=== PATIENT | female | born 1965 ===

== ENCOUNTER 2017-04-10 14:51 | Inpatient (IN) | payer BC, OTHER ==
[~2017-04-10] VITALS: Ht 165.1 cm; Wt 72.6 kg
[~2017-04-10 14:51] MED LIST: CLON0.1T14 PO; DICY20TA28 PO; Fluoxetine Hcl PO; Gabapentin PO; HYDR-3895 PO; Trazodone Hcl PO
[2017-04-10] MEDS ORDERED: LORAZEPAM 1 MG TABLET PO PRN (16:30)
[2017-04-10] MEDS ORDERED: ONDANSETRON 4 MG/2 ML VIAL IM PRN (16:30)
[2017-04-10] MEDS ORDERED: MAG HYDROX/AL HYDROX/SIMETH 30 ML LIQUID UDC PO PRN (16:30)
[2017-04-10] MEDS ORDERED: ONDANSETRON ODT 4 MG TAB.RAPDIS SL PRN (16:30)
[2017-04-10] MEDS ORDERED: NICOTINE 14 MG/24HR PATCH TD PRN (16:30)
[2017-04-10] MEDS ORDERED: NICOTINE POLACRILEX 4 MG GUM-PK OF TEN BC PRN (16:30)
[2017-04-10] MEDS ORDERED: LORAZEPAM 2 MG/1 ML VIAL IM PRN (16:30)
[2017-04-10] MEDS ORDERED: MIRALAX 17 GM POWD.PACK PO PRN (16:30)
[2017-04-10] MEDS ORDERED: MAGNESIUM HYDROXIDE 30 ML LIQUID UDC PO PRN (16:30)
[2017-04-10] MEDS ORDERED: LOPERAMIDE HCL 2 MG CAPSULE PO PRN ×2 (16:30)
--- NOTE | 2017-04-10 16:30 | NUR ---
INTAKE ASSESSMENT Received patient in intake. She is AOX4, stable, and ambulatory. Vital signs WNL. Denies any pain or discomfort. Patient reports NKA. Patient brought home medications with her. Explained unit protocols and patient verbalized understanding. Will admit patient upon admission to third floor.
--- NOTE | 2017-04-10 16:50 | NUR ---
ADMISSION NOTE Allergy- NKA/NKFA Status-Full code Height 5'5 Weight-160 lb PCP-NONE Vital Signs- B/P-122/69,HR-102, R-17, TEMP-98.6, SPO2-98%, Pain 0/10 CIWA-4 Patient is a 51 year old female admitted to [facility] to detox center for ETOH dependence under the care of Dr. Hernandez. Urine provided by patient for urine screen and thorough body and belonging check done by DIRECTOR OF CLOUD SERVICES. Patient appears anxious. Patient is cooperative during nursing assessment. Upon admission Patient is noted to be flat, intoxicated, but cooperative with admission. Patient denies chest pain or SOB. Lung sounds clear with no cough noted. Bowel sounds present in all 4 quadrants. BUE and BLE noted WNL with no edema present. Skin check done with no significant findings. Pt reported PMH of Anxiety, Depression, insomnia, Pt refused PNA vaccine. Patient brought in home medications. Patient denies SI/HI ideations. Pt AOx4. Patient reported first time in treatment. Patient reports of 5 years of sobriety from 2010 to 2014. Pt reported s/s of withdrawal as N/V, anxiety, Shakes, Restless.Patient reported treatment history as in [facility] in august 2016. Pt reported Substance abuse history as: WHITE WINE-Pt reported drinking since February 2017 daily 2 bottles last used was 04/10/17, 2 bottles Po at 1200. VODKA-Pt reported drinking since February 2017 daily 1/2 bottle last used was 04/10/17, 2 bottles Po at 1400. Educated patient regarding unit policies and protocols, patient verbalized understanding. Patient oriented to unit by DIRECTOR OF CLOUD SERVICES. Fall and seizure precautions in place. Safety measures in place, Call light within reach. Will cont to monitor.
[2017-04-10] MEDS ORDERED: THIAMINE HCL 200 MG/2 ML VIAL IM ONE (17:00)
[2017-04-10 17:17] LABS: *URINE HCG, QUAL NEGATIVE (NEGATIVE)
[2017-04-10] MEDS ORDERED: TRIA10.8 NS (17:23)
[2017-04-10] MEDS ORDERED: [UNRECOGNIZED DRUG - CODE] PO (17:23)
[2017-04-10 17:24] LABS: *AMPHETAMINE, URINE NEGATIVE (NEGATIVE); *BARBITURATE, URINE NEGATIVE (NEGATIVE); *CANNABINOID, URINE NEGATIVE (NEGATIVE); *COCCAINE, URINE NEGATIVE (NEGATIVE); *OPIATE, URINE NEGATIVE (NEGATIVE); *PHENCYCLIDINE SCREEN,URINE NEGATIVE (NEGATIVE)
[2017-04-10] MEDS ORDERED: LORATIDINE 10 MG PO PRN (18:00)
--- NOTE | 2017-04-10 19:14 | NUR ---
END OF SHIFT NOTE Patient is alert oriented x4. 51 year old female admitted for ETOH dependence. Patient has PMH of anxiety,depression, Insomnia. Patient was given scheduled Thiamine tolerated well no s/s of swelling no bleeding noted. Skin intact warm and dry to touch. Last CIWA score was 4. All safety measures in place, Call light within reach. Patient endorsed to night nurse in stable condition.
[2017-04-10 20:00] VITALS: BP 115/62
--- NOTE | 2017-04-10 20:00 | NUR ---
START OF SHIFT NOTE RECEIVED REPORT FROM DAY SHIFT NURSE. PATIENT IS A 51 YEAR OLD FEMALE NEWLY ADMITTED FOR ETOH DEPENDENCE. PATIENT REPORTS PMH OF ANXIETY, DEPRESSION AND INSOMNIA . UPON ADMISSION, PATIENT REPORTS DRINKING 2 BOTTLES OF WINE AND VODKA BOTTLE DAILY SINCE 17 YEARS OLD. PATIENT WAS PLACED ON ATIVAN TAPER TO START TOMORROW. SKIN INTACT. THIAMINE IM GIVEN. LAST CIWA 4. RECEIVED PATIENT ALERT AND ORIENTED X 4. RESPIRATION EVEN AND UNLABORED. PATIENT REPORTS ANXIETY, NOTED WITH TREMORS, NO N/V, RESTLESS , SWEATING AND FIDGETY. RELAXATION TECHNIQUE PROVIDED. ON FALL/SEIZURE PRECAUTION. SAFETY MEASURES IN PLACE. CALL LIGHT IN REACH. WILL CONTINUE TO MONITOR.
[2017-04-10] MEDS: LORAZEPAM 1 MG TABLET PO PRN (20:21)
--- NOTE | 2017-04-10 20:21 | NUR ---
PRN ATIVAN ADMINISTRATION PATIENT C/O ANXIETY, NOTED RESTLESS, TREMORS AND SWEATING. CIWA 11. ATIVAN GIVEN. WILL MONITOR FOR EFFECTIVENESS
[2017-04-10 21:14] LABS: BASOPHILS # (AUTO) 0.1 K/uL (0.0-8.0); EOSINOPHILS % (AUTO) 0.1 % (0.0-7.0); HEMATOCRIT 40.4 % (37-47); HEMOGLOBIN 13.3 G/DL (12.0-16.0); LYMPHOCYTES # (AUTO) 2.1 K/UL (0.8-4.8); LYMPHOCYTES % (AUTO) 25.6 % (20.5-51.5); MEAN CORPUSCULAR HGB CONC 33 g/dL (32.0-37.0); MEAN CORPUSCULAR VOLUME 96.7 FL (81.0-99.0); MONOCYTES # (AUTO) 0.8 K/UL (0.1-1.30); MONOCYTES % (AUTO) 9.9 % (0.0-11.0); NEUTROPHILS # (AUTO) 5.1 K/UL (1.8-8.9); NEUTROPHILS % (AUTO) 63.4 % (38.5-71.5); PLATELET COUNT (AUTO) 188 K/UL (150-450); RED BLOOD CELL COUNT(AUTO) 4.18 MIL/UL (4.2-5.4); WHITE BLOOD COUNT (AUTO) 8.1 K/UL (4.0-11.2)
--- NOTE | 2017-04-10 21:21 | NUR ---
PRN ATIVAN RE-ASSESSMENT PATIENT STATES SHE FEELS MUCH BETTER, LESS ANXIOUS, ATIVAN HELPFUL. CIWA IS NOW 5 FROM 11 . WILL CONTINUE TO MONITOR
[2017-04-10 21:37] LABS: BILIRUBIN,TOTAL 0.3 mg/dL (0.2-1.0); CREATININE 0.8 mg/dL (0.6-1.3); MAGNESIUM 2.1 mg/dL (1.8-2.4); POTASSIUM 3.8 mmol/L (3.5-5.1); TOTAL PROTEIN, SERUM 6.8 g/dL (6.4-8.2)
[2017-04-11] VITALS (7 sets, daily range): BP systolic 106–157; BP diastolic 63–89
[2017-04-11] MEDS: diphenhydrAMINE 50 MG CAPSULE PO PRN (00:08)
[2017-04-11] MEDS: IBUPROFEN 400 MG TABLET PO PRN (00:08)
--- NOTE | 2017-04-11 00:08 | NUR ---
PRN MOTRIN, BENADRYL AND CATAPRES ADMINISTRATION PATIENT C/O OF BOTH LOWER EXTREMITIES PAIN, UNABLE TO SLEEP, ANXIOUS, TREMORS AND BP-142/78. PRN MOTRIN, CATAPRES AND BENADRYL GIVEN. WILL MONITOR FOR EFFECTIVENESS
[2017-04-11] MEDS: CLONIDINE HCL 0.1 MG TABLET PO PRN ×2 (00:09→20:27)
--- NOTE | 2017-04-11 01:08 | NUR ---
THUY CORNELIUS AND CATAPRES RE-ASSESSMENT PATIENT IN BED WITH EYES CLOSED. NO FACIAL GRIMACING. RESPIRATION EVEN AND UNLABORED. SAFETY MEASURES IN PLACE. CALL LIGHT IN REACH. WILL CONTINUE TO MONITOR.
[2017-04-11] MEDS: LORAZEPAM 1 MG TABLET PO PRN (04:12)
--- NOTE | 2017-04-11 04:12 | NUR ---
PRN ATIVAN ADMINISTRATION PATIENT C/O ANXIETY, TREMULOUS AND RESTLESS. CIWA 8. PRN ATIVAN GIVEN. WILL MONITOR FOR EFFECTIVENESS
--- NOTE | 2017-04-11 05:12 | NUR ---
PRN ATIVAN RE-ASSESSMENT PATIENT SLEEPING COMFORTABLY. NO S/S OF DISTRESS. NO FACIAL GRIMACING. RESPIRATION EVEN AND UNLABORED. SAFETY MEASURES IN PLACE. CALL LIGHT IN REACH. WILL CONTINUE TO MONITOR.
--- NOTE | 2017-04-11 07:10 | NUR ---
END OF SHIFT NOTE PATIENT IS A 51 YEAR OLD FEMALE ADMITTED FOR ETOH DEPENDENCE. PATIENT REPORTS PMH OF ANXIETY, DEPRESSION AND INSOMNIA . UPON ADMISSION, PATIENT REPORTS DRINKING 2 BOTTLES OF WINE AND VODKA BOTTLE DAILY SINCE 17 YEARS OLD. PATIENT WAS PLACED ON ATIVAN TAPER TO START TODAY. SKIN INTACT. PATIENT WAS ANXIOUS, TREMULOUS AND RESTLESS DURING SHIFT. PATIENT WAS GIVEN PRN ATIVAN X 2 . BENADRYL WAS GIVEN FOR SLEEP AND CATAPRES . RELAXATION PROVIDED. ON FALL/SEIZURE PRECAUTION. SAFETY MEASURES IN PLACE. CALL LIGHT IN REACH. WILL CONTINUE TO MONITOR. SLEPT 8 HOURS. FLUID INTAKE 646 ML. VOIDED X 2. NO BM. LAST CIWA 8 .
--- NOTE | 2017-04-11 07:51 | NUR ---
START OF SHIFT NOTE Received report from night nurse, 51 year old female admitted for ETOH dependence. Patient has PMH of anxiety,depression, Insomnia. Per endorsement pt received PRN Ativan, Clonidine, Benadryl, Motrin effective per night nurse, pt slept for 8 hours, last CIWA was 8. Patient received awake, alert and oriented x4, Educated patient regarding plan of care for the day and medication regimen with good verbal understanding. Safety measures in place. call light with in reach, will continue to monitor.
[2017-04-11] MEDS ORDERED: TUBERCULIN,PURIF.PROT.DERIV. 5 TU/0.1 ML TEST ID ONE (09:00)
[2017-04-11] MEDS: MULTIVITAMINS,THERAPEUTIC TABLET PO SCH (09:08)
[2017-04-11] MEDS: FOLIC ACID 1 MG TABLET PO SCH (09:08)
[2017-04-11] MEDS: LORAZEPAM 1 MG TABLET PO SCH ×4 (09:08→20:27)
[2017-04-11] MEDS: THIAMINE HCL 100 MG TABLET PO SCH (09:08)
[2017-04-11] MEDS: BENZOCAINE/MENTH/CETYLPYRD LOZENGE MM PRN ×2 (16:07→20:30)
--- NOTE | 2017-04-11 16:07 | NUR ---
PRN CEPACOL Patient was c/o of sore throat, PRN Cepacol given as ordered. Will cont to monitor and reassess.
--- NOTE | 2017-04-11 17:07 | NUR ---
CEPACOL REASSESSMENT Per pt Cepacol was effective "My throat is feeling better".
--- NOTE | 2017-04-11 19:07 | NUR ---
END OF SHIFT NOTE Patient is alert oriented x4. 51 year old female admitted for ETOH dependence. Patient has PMH of anxiety,depression, Insomnia. Patient started on 5 days Ativan taper tolerating well. Medications were effective in reducing withdrawal symptoms. Skin intact warm and dry to touch. Last CIWA score was 7. Patient remained compliant with treatment plan and medication regime. All safety measures in place, Call light within reach. Patient endorsed to night nurse in stable condition.
--- NOTE | 2017-04-11 20:00 | NUR ---
Start of Shift Pt is a 51 year old female admitted for ETOH dependence, placed on 5 day Ativan taper. Pt reported consuming Wine 2 bottles/daily and Vodka 0.5 bottle/daily. PMH: anxiety, depression and insomnia. NKA, regular diet, fall/seizure precautions and full code. Upon assessment, pt presents with anxiety, reports feeling hot/cold with chills, skin is flushed noted with moderate sweat, denies SOB/chest pain, respirations even/unlabored, denies n/v/d, medications due, safety measures in place, call light within reach, side rails up x2, bed locked and in low position. Will continue to monitor.
--- NOTE | 2017-04-11 20:30 | NUR ---
PRN Administration Pt reports feeling anxious, skin flushed/clammy, reports feeling restless. BP 157/89, pulse 117 Clonidine 0.1mg PRN administered. Cepacol 1loz PRN administered for sore throat. Safety measures in place, will continue to monitor.
--- NOTE | 2017-04-11 21:30 | NUR ---
PRN Reassessment BP 119/71, pulse 106. Pt reports she is "feeling better". Pt denies sore throat. Medications effective. Safety measures in place. Will continue to monitor.
[2017-04-12] VITALS: BP 124/74
[2017-04-12 04:00] VITALS: BP 118/57
--- NOTE | 2017-04-12 04:00 | NUR ---
Vital Signs/CIWA deferred BP 118/57, pulse 97, resp 16, SpO2 100% room air, temp 98.1, no pain 0/10 CIWA deferred due to pt sleeping, to assess while pt is awake as ordered. Safety measures in place, will continue to monitor.
[2017-04-12] MEDS: CLONIDINE HCL 0.1 MG TABLET PO PRN ×2 (06:30→18:02)
--- NOTE | 2017-04-12 06:30 | NUR ---
PRN Clonidine Pt reports feeling anxious, she states, "I feel as though I am about to faint" BP 135/87, pulse 130 Clonidine 0.1mg PRN administered Safety measures in place, will continue to monitor.
[2017-04-12 07:06] LABS: HEPATITIS B SURFACE AG Negative (Negative)
--- NOTE | 2017-04-12 07:06 | NUR ---
PRN Clonidine Reassessment BP 126/77, pulse 91 Pt reports she no longer feels like fainting. Pt is in bed resting, needs met safety measures in place, will continue to monitor.
--- NOTE | 2017-04-12 07:07 | NUR ---
End of Shift Pt is a 51 year old female admitted for ETOH dependence, placed on 5 day Ativan taper. Pt reported consuming Wine 2 bottles/daily and Vodka 0.5 bottle/daily. PMH: anxiety, depression and insomnia. NKA, regular diet, fall/seizure precautions and full code. During shift, pt presented with anxiety, reported feeling hot/cold with chills, skin flushed noted with moderate sweat scheduled taper medications administered, CIWA &. Clonidine 0.1mg x2 PRN administered for reports of anxiety and restlessness, effective. Cepacol 1loz PRN administered for sore throat. Pt slept for 7 hours, intake of 1455 ml PO, voids x3 and stool x0. Safety measures in place, call light within reach, side rails up x2, bed locked and in low position. Endorsed to day shift nurse.
--- NOTE | 2017-04-12 07:44 | NUR ---
Start of shift note; Received report from night nurse. Patient is a 51 year old female admitted on 04/10/17 for ETOH dependence. Patient was placed on 5 day Ativan taper, no adverse reaction noted. Patient reported history of anxiety, depression and insomnia. NKA, on regular diet and on full code status. Patient's last CIWA was 7 at 0400. Patient slept for 7 hours. Patient is on fall and seizure precaution. Bed in lowest position , call light within reach. Will continue to monitor patient.
[2017-04-12 08:00] VITALS: BP 127/82
[2017-04-12] MEDS: LORAZEPAM 1 MG TABLET PO SCH ×3 (08:57→16:33)
[2017-04-12] MEDS: MULTIVITAMINS,THERAPEUTIC TABLET PO SCH (08:57)
[2017-04-12] MEDS: THIAMINE HCL 100 MG TABLET PO SCH (08:57)
[2017-04-12] MEDS: FOLIC ACID 1 MG TABLET PO SCH (08:57)
[2017-04-12] MEDS ORDERED: INFLUENZA VACCINE 2017-2018 0.5 ML DISP.SYRIN IM ONE (09:00)
[2017-04-12] MEDS ORDERED: VENLAFAXINE XR 75 MG CAP.SR.24H PO SCH (09:00)
--- NOTE | 2017-04-12 09:07 | NUR ---
Vaccine refusal; Patient refused to receive Flu shot, patient stated "i don't feel well, i will get some other time". Educated patient regarding the importance of Flu shot, patient verbalized understanding.
--- NOTE | 2017-04-12 10:00 | NUR ---
Activity Group Note: Client participated in "painting" activity. Intervention goal was to increase task focus, and leisure skills. Client appeared hesitant at beginning of activity, but was willing to participate once supplies were assembled. She appeared to have calm affect with congruent mood. Client was able to focus on task and initiate conversation with social worker clinical. She was able to complete activity and stated that it was "relaxing" and "brought her back to life." Client benefits from leisure activities. Will continue to encourage participation.
--- NOTE | 2017-04-12 10:11 | NUR ---
ENDORSEMENT Pt endorsed to me. Pt received in group activity. No distress noted.
--- NOTE | 2017-04-12 10:11 | NUR ---
Endorsement given; Patient is AOX4. Detailed report given to covering nurse. Met all needs.
[2017-04-12] MEDS: BENZOCAINE/MENTH/CETYLPYRD LOZENGE MM PRN ×3 (11:30→20:53)
--- NOTE | 2017-04-12 11:34 | NUR ---
PRN Pt with c/o sore throat. Cepacol prn per MD order given and tolerated well.
[2017-04-12 12:31] VITALS: BP 128/80
--- NOTE | 2017-04-12 12:34 | NUR ---
PRN EVAL Pt states sore throat has improved, but not completely gone.
--- NOTE | 2017-04-12 13:45 | NUR ---
Activity Group Note: Attempt made for group participation. Client refused. Will attempt again when time permits.
[2017-04-12 16:00] VITALS: BP 125/84
--- NOTE | 2017-04-12 16:34 | NUR ---
PRN pt with c/o sore throat. cepacol prn per MD order given and tolerated well.
--- NOTE | 2017-04-12 17:34 | NUR ---
PRN EVAL Pt states still has slightly sore throat.
[2017-04-12] MEDS: IBUPROFEN 400 MG TABLET PO PRN (18:02)
--- NOTE | 2017-04-12 18:03 | NUR ---
PRN Pt states has bilateral leg pain 5/10. motrin po prn per MD order given and tolerated well.
--- NOTE | 2017-04-12 18:05 | NUR ---
PRN Pt with xg=892/64. Catapres po prn per MD order given and tolerated well.
--- NOTE | 2017-04-12 18:26 | NUR ---
END OF SHIFT Pt 51 y/o female admitted for etoh dependence. Pt alert and oriented to name, place, and time. Perrla. Skin warm and slightly moist to touch. Respirations even and unlabored. Pt mostly isolative to room today. Pt did attend group activity. Pt was seen by MD today. Pt medication compliant and tolerated well. No ASE noted. Bed on lowest position with siderails x2 up for safety. Call light within reach. No distress noted at this time.
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
[2017-04-12 20:00] VITALS: BP 139/88
[2017-04-12] MEDS: CLONIDINE HCL 0.1 MG TABLET PO SCH (20:42)
[2017-04-12] MEDS ORDERED: LORAZEPAM 1 MG TABLET PO SCH (21:00)
[2017-04-12] MEDS: diphenhydrAMINE 50 MG CAPSULE PO PRN (21:42)
--- NOTE | 2017-04-12 21:42 | NUR ---
PRN CEPACOL AND BENADRYL ADMINISTRATION Pt is coughing and requests PRN Cepacol cough drops, administered at 2052. Pt also requests PRN Benadryl for sleep aid. Safety measures in place. Call light within reach. Will continue to monitor.
--- NOTE | 2017-04-12 22:42 | NUR ---
PRN CEPACOL AND BENADRYL REASSESSMENT Pt is laying in bed with eyes closed. Respirations 16, even and unlabored. Safety measures in place. Call light within reach. Will continue to monitor.
--- NOTE | 2017-04-13 | NUR ---
PT REFUSED VITALS AND CIWA DEFERRED Pt is laying in bed with eyes closed. Pt refused vitals. CIWA deferred, to be assessed when pt is fully awake per orders. Respirations 16, even and unlabored. Safety measures in place. Call light within reach. Will continue to monitor.
[2017-04-13] MEDS: CLONIDINE HCL 0.1 MG TABLET PO PRN (01:34)
--- NOTE | 2017-04-13 01:34 | NUR ---
PRN CLONIDINE ADMINISTRATION Pt reports waking up and now feeling restless and anxious. BP 130/77. Safety measures in place. Call light within reach. Will continue to monitor.
[2017-04-13 01:35] VITALS: BP 130/77
--- NOTE | 2017-04-13 02:34 | NUR ---
PRN CLONIDINE REASSESSMENT Pt is laying in bed with eyes closed. Respirations 16, even and unlabored. Safety measures in place. Call light within reach. Will continue to monitor.
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
[2017-04-13 08:45] VITALS: BP 133/73
[2017-04-13] MEDS: THIAMINE HCL 100 MG TABLET PO SCH (08:54)
[2017-04-13] MEDS: FOLIC ACID 1 MG TABLET PO SCH (08:54)
[2017-04-13] MEDS: LORAZEPAM 1 MG TABLET PO SCH ×3 (08:54→21:14)
[2017-04-13] MEDS: IBUPROFEN 400 MG TABLET PO PRN ×2 (08:54→21:14)
[2017-04-13] MEDS: CLONIDINE HCL 0.1 MG TABLET PO SCH ×2 (08:54→21:15)
[2017-04-13] MEDS: MULTIVITAMINS,THERAPEUTIC TABLET PO SCH (08:54)
[2017-04-13] MEDS ORDERED: VENLAFAXINE XR 75 MG CAP.SR.24H PO SCH (09:00)
[2017-04-13] MEDS: VENLAFAXINE XR 37.5 MG CAP.SR.24H PO SCH (09:27)
[2017-04-13] MEDS: BENZOCAINE/MENTH/CETYLPYRD LOZENGE MM PRN ×3 (09:28→21:14)
--- NOTE | 2017-04-13 09:28 | NUR ---
PRN Motrin 400mg PO for pain 6/10 on left lower extremity, PRN Cepacol Lozenge MM for sore throat. Will continue to monitor.
--- NOTE | 2017-04-13 10:28 | NUR ---
Reassessment PRN Motrin 400mg client reports relief from pain 0/10 on left lower extremity, PRN Cepacol Lozenge MM for sore throat effective. Will continue to monitor.
[2017-04-13 12:57] VITALS: BP 106/69
--- NOTE | 2017-04-13 15:11 | NUR ---
PRN Cepacol Lozenge MM for sore throat. Will continue to monitor.
--- NOTE | 2017-04-13 16:11 | NUR ---
Reassessment PRN Cepacol Lozenge MM for sore throat effective.
[2017-04-13 16:44] VITALS: BP 131/75
--- NOTE | 2017-04-13 19:30 | NUR ---
END OF SHIFT Client is a 51 y/o female, admitted to [facility] for withdrawal from alcohol. Client is on 5 day Ativan taper (day 3), tolerating well. Last CIWA 7 @ 1600. PRN Cepacol Lozenge MM x 2 for sore throat, Motrin 400mg PO for pain, noted effective. Adequate PO fluid intake 2555mL, void x 5, stool x 2. Client is compliant with 2/3 of group therapy. She denies any hx of withdrawal-induced seizures, she is on seizure precautions. She reports of NKA, he is full code, Regular diet. Side rails x 2 up/padded. Call light within reach.
[2017-04-13 20:00] VITALS: BP 130/71
[2017-04-13] MEDS: diphenhydrAMINE 50 MG CAPSULE PO PRN (22:45)
[2017-04-14] VITALS: BP 140/74
[2017-04-14] MEDS: BENZOCAINE/MENTH/CETYLPYRD LOZENGE MM PRN (00:37)
[2017-04-14] MEDS: CLONIDINE HCL 0.1 MG TABLET PO PRN (00:37)
--- NOTE | 2017-04-14 07:30 | NUR ---
START OF SHIFT Pt 51 y/o female admitted for etoh dependence. Pt received in room on bed with eyes closed resting, but easily arousable to name. Pt alert and oriented to name, place, and time. Perrla. Skin warm and slightly moist to touch. Respirations even and unlabored. Bilateral hand tremors noted. It was reported that pt slept for 8 hour last night. Bed on lowest position with side rails x2 up for safety. Call light within reach. No distress noted at this time.
[2017-04-14 08:00] VITALS: BP 101/53
[2017-04-14 08:15] VITALS: BP 110/69
--- NOTE | 2017-04-14 08:35 | NUR ---
PRN Pt states has sore throat. Cepacol prn per MD order given and tolerated well.
--- NOTE | 2017-04-14 08:35 | NUR ---
PRN Pt states has left leg pain and left shoulder pain 5/10. Ibuprofen po prn per MD order given and tolerated well.
[2017-04-14] MEDS: LORAZEPAM 1 MG TABLET PO SCH ×2 (09:00→21:12)
[2017-04-14] MEDS: MULTIVITAMINS,THERAPEUTIC TABLET PO SCH (09:00)
[2017-04-14] MEDS: CLONIDINE HCL 0.1 MG TABLET PO SCH ×2 (09:00→21:13)
[2017-04-14] MEDS: THIAMINE HCL 100 MG TABLET PO SCH (09:00)
[2017-04-14] MEDS: VENLAFAXINE XR 37.5 MG CAP.SR.24H PO SCH (09:00)
[2017-04-14] MEDS: FOLIC ACID 1 MG TABLET PO SCH (09:00)
--- NOTE | 2017-04-14 09:00 | NUR ---
0900 MEDICATION ADMINISTRATION All 0900 medications scheduled were administrated per MD order, per [facility] down time.
--- NOTE | 2017-04-14 09:35 | NUR ---
PRN LOVE Pt states pain 2/10 at this time.
--- NOTE | 2017-04-14 09:35 | NUR ---
PRN EVAL Pt states sore throat has subsided.
[2017-04-14] MEDS ORDERED: HYDROXYZINE PAMOATE 25 MG CAPSULE PO PRN (11:15)
[2017-04-14 12:59] VITALS: BP 101/51
--- NOTE | 2017-04-14 13:07 | NUR ---
Therapist prompted client to attend group today. Client agreed to attend.
[2017-04-14 16:00] VITALS: BP 113/60
--- NOTE | 2017-04-14 18:24 | NUR ---
START OF SHIFT NOTE: Patient is a 51 year old female admitted to [facility] for Alcohol dependency, continue 5 Day Ativan Taper. Patient tolerated well without ASE. Patient remains compliant with treatment plan, medications, and diet regime. Patient reports NKA, Regular Diet. Patient is on Full Code, Fall and Seizures Precautions. Patient denies Seizures History. PMH: Anxiety, Depression, Insomnia, Alcohol abuse History. Patient reports Alcohol PO: "Wine 2 bottles since 2000 every day. Last used "2 bottles on 04/10/2017". "Vodka 1/2 bottle (375 ml) every day". Last used "1/2 bottle (375 ml) on 04/10/2017". Patient reports recent History of Hospitalization/Treatment in [facility] on August,. VSWNL. CIWA 5. Respirations is unlabored and even. Patient denies SOB and chest pain. Lungs Sounds are clear. Patient reports has cough last 2 week. Abdomen is soft, non-tender. Bowel Sounds active in all four quadrants. Skin is intact, warm, and dry to touch. Encouraged to fluids intake as tolerated. Encouraged to attend groups activities. All needs met. Safety measures in place: Call light within reach, bed in low position, and locked, padded rails up bilaterally. Patient endorsed by outgoing day shift nurse. Report received. Will continue to monitor closely.
--- NOTE | 2017-04-14 18:24 | NUR ---
END OF SHIFT Pt 51 y/o female admitted for etoh dependence. Pt alert and oriented to name, place, and time. Perrla. Skin warm and dry to touch. Respirations even and unlabored. Bilateral hand tremors noted slightly. Pt attended group activity today. Pt was seen by MD today. Pt medication compliant and tolerated well. No ASE noted. Bed on lowest position with side rails x2 up for safety. Call light within reach. No distress noted at this time.
[2017-04-14 20:00] VITALS: BP 118/68
[2017-04-14] MEDS: NASOCORT NS PRN (21:11)
[2017-04-14] MEDS: QUETIAPINE FUMARATE 25 MG TABLET PO PRN (21:12)
--- NOTE | 2017-04-14 21:12 | NUR ---
PRN SEROQUEL 50 MG 2 TABS PO ADMINISTRATION Patient c/o insomnia. PRN Seroquel 50 mg 2 tabs PO administrated with full glass of water as ordered. Patient tolerated well. All needs met. Safety measures on place. Call light within reach, bed in lowest position and locked, padded rails up bilaterally rails up bilaterally. Will continue to monitor closely.
--- NOTE | 2017-04-14 22:12 | NUR ---
RE-ASSESSMENT Patient is sleeping. Respirations even and unlabored. RR:14. PRN Seroquel 50 mg 2 tabs PO administrated for insomnia @2111 was effective. All needs met. Safety measures on place. Call light within reach, bed in lowest position and locked, padded rails up bilaterally rails up bilaterally. Will continue to monitor closely.
--- NOTE | 2017-04-15 | NUR ---
VS REFUSED AND COWS/CIWA DEFERRED Patient refused to be woken up for 0000 VS. COWS/CIWA deferred d/t patient sleeping to assess while patient is awake. Safety measures on place by hospital policy: Call light within reach; Bed in lowest position and locked; side rails up x2. Will continue to monitor.
[2017-04-15 04:00] VITALS: BP 95/56
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
[2017-04-15 08:00] VITALS: BP 90/60
--- NOTE | 2017-04-15 08:01 | NUR ---
START OF SHIFT: RECEIVED PT A/O X 4. SHE STATES SHE IS NOT SLEEPING WELL AND FEELS FATIGUED. SHE STATES SHE HAS SOME ANXIETY AND THE ATIVAN HAS BEEN EFFECTIVE. CIWA 3. ATIVAN ADMINISTERED ORDERED. PT STATES HER APPETITE IS GOOD. ENCOURAGED GROUP ATTENDANCE TO IMPROVE COPING SHILLS AND PREVENT RELAPSE. WILL CONTINUE TO MONITOR AND OFFER SUPPORT.
[2017-04-15] MEDS: FOLIC ACID 1 MG TABLET PO SCH (08:31)
[2017-04-15] MEDS: VENLAFAXINE XR 150 MG CAP.SR.24H PO SCH (08:31)
[2017-04-15] MEDS: MULTIVITAMINS,THERAPEUTIC TABLET PO SCH (08:31)
[2017-04-15] MEDS: THIAMINE HCL 100 MG TABLET PO SCH (08:31)
[2017-04-15] MEDS: CLONIDINE HCL 0.1 MG TABLET PO SCH ×2 (08:32→20:07)
[2017-04-15] MEDS ORDERED: LORAZEPAM 1 MG TABLET PO SCH (09:00)
[2017-04-15] MEDS ORDERED: VENLAFAXINE XR 37.5 MG CAP.SR.24H PO SCH (09:00)
[2017-04-15 12:00] VITALS: BP 103/60
[2017-04-15] MEDS: IBUPROFEN 400 MG TABLET PO PRN ×3 (14:46→23:37)
[2017-04-15] MEDS: ACETAMINOPHEN 325 MG TABLET PO PRN ×3 (14:46→23:37)
[2017-04-15] MEDS ORDERED: HYDR-3895 PO (17:11)
[2017-04-15] MEDS ORDERED: VENL150C2 PO (17:11)
[2017-04-15] MEDS ORDERED: QUET25TA PO (17:11)
[2017-04-15] MEDS ORDERED: IBUP-1953 PO (17:11)
[2017-04-15] MEDS ORDERED: CLON0.1T14 PO (17:13)
[2017-04-15 17:40] VITALS: BP 117/63
--- NOTE | 2017-04-15 18:40 | NUR ---
PRN ADMINISTRATION: PT WITH COMPLAINTS OF SHOULDER PAIN, ADMINISTERED PRN MOTRIN AND TYLENOL. FOR PAIN LEVEL OF 8/10. WILL RE-ASSESS EFFECTIVENESS OF MEDICATION
--- NOTE | 2017-04-15 19:14 | NUR ---
RE-ASSESSMENT Patient VSWNL. Patient denies any pain now:'0/10". PRN Motrin PO and PRN Tylenol PO administrated @1814 for shoulder pain by day shift nurse were effective. All needs met. Safety measures on place. Call light within reach, bed in lowest position and locked, padded rails up bilaterally rails up bilaterally. Will continue to monitor closely.
--- NOTE | 2017-04-15 19:17 | NUR ---
START OF SHIFT NOTE: Patient is a 51 year old female admitted to [facility] for Alcohol dependency, completed 5 Day Ativan Taper, tolerated well without ASE. Patient remains compliant with treatment plan, medications, and diet regime. Patient reports NKA . Patient is on Regular Diet, Full Code, Fall and Seizures Precautions. Patient denies Seizures History. PMH: Anxiety, Depression, Insomnia, Alcohol abuse History. Patient is alert and oriented x4, speech is soft and clear. Patient is cooperative. CIWA 4. VS WNL. Patient denies SI/HI. Respirations unlabored and even. Patient denies SOB and chest pain. Skin is intact, warm and dry to touch. Encourage fluids as tolerated. Encourage to attend activities groups. All needs met. Safety measures on place. Call light within reach, bed in lowest position and locked, padded rails up bilaterally. Patient endorsed by day shift nurse. Report received. Will to monitor closely.
--- NOTE | 2017-04-15 19:17 | NUR ---
END OF SHIFT NOTE: PT IS IN STABLE CONDITION, TENSILE TESTER NURSE TO TO RE-ASSESS. PT IS ADMITTED TO [facility] FOR ETOH/METH WITHDRAWAL/DEPENDENCE. PT TOLERATING TAPER MEDICATIONS WELL. NO A/R REACTION NOTED. WILL ENDORSE PT TO TENSILE TESTER NURSE.
[2017-04-15 20:00] VITALS: BP 123/72
[2017-04-15] MEDS: QUETIAPINE FUMARATE 25 MG TABLET PO PRN (20:07)
[2017-04-15] MEDS: NASOCORT NS PRN (20:07)
--- NOTE | 2017-04-15 20:07 | NUR ---
PRN SEROQUEL 50 MG 2 TAB PO ADMINISTRATION Patient c/o insomnia. PRN Seroquel 50 mg 2 caps PO administrated with full glass of water as ordered. Patient tolerated well. All needs met. Safety measures on place. Call light within reach, bed in lowest position and locked, padded rails up bilaterally rails up bilaterally. Will continue to monitor closely.
--- NOTE | 2017-04-15 21:07 | NUR ---
RE-ASSESSMENT Patient is sleeping. Respirations even and unlabored. RR 15. PRN Seroquel 50 mg 2 caps PO was effective. All needs met. Safety measures on place. Call light within reach, bed in lowest position and locked, padded rails up bilaterally rails up bilaterally. Will continue to monitor closely.
[2017-04-15] MEDS: BENZOCAINE/MENTH/CETYLPYRD LOZENGE MM PRN (23:30)
--- NOTE | 2017-04-15 23:30 | NUR ---
PRN CEPACOL 1 YANCI PO FOR SRE THROAT ADMINISTRATION Patient c/o sore throat and asked aid. PRN Cepacol 1 Yanci PO administrated as ordered with full glass of water. Patient tolerated well. All needs met. Safety measures on place. Call light within reach, bed in lowest position and locked, padded rails up bilaterally rails up bilaterally. Will continue to monitor closely. Addendum: 04/16/17 at 0142 by STANLEY ALICEA RN FOR SORE THROAT ADMINISTRATION
--- NOTE | 2017-04-15 23:37 | NUR ---
PRN TYLENOL 650 MG 2 TAB PO , PRN MOTRIN 400 MG 1TAB PO ADMINISTRATION Patient c/o shoulder pain "8/10"and asked aid. PRN Motrin 400 mg 1 tab PO, and PRN Tylenol 650 mg 2 tab PO administrated with full glass of water as ordered. Warm compress on left shoulder applied. Patient tolerated well. All needs met. Safety measures on place. Call light within reach, bed in lowest position and locked, padded rails up bilaterally rails up bilaterally. Will continue to monitor closely.
[2017-04-16] VITALS: BP 132/77
--- NOTE | 2017-04-16 00:30 | NUR ---
RE-ASSESSMENT Patient is sleeping. Respirations even and unlabored. RR:15. PRN Cepacol 1 Andi PO was effective. All needs met. Safety measures on place. Call light within reach, bed in lowest position and locked, padded rails up bilaterally rails up bilaterally. Will continue to monitor closely.
--- NOTE | 2017-04-16 00:37 | NUR ---
RE-ASSESSMENT Patient is sleeping. Respirations even and unlabored. RR:15. PRN Motrin 400 mg 1 tab PO, PRN Tylenol 650 mg 2 tab PO, and warm compress on left shoulder were effective. All needs met. Safety measures on place. Call light within reach, bed in lowest position and locked, padded rails up bilaterally rails up bilaterally. Will continue to monitor closely.
--- NOTE | 2017-04-16 04:00 | NUR ---
VS REFUSED AND COWS/CIWA DEFERRED Patient refused to be woken up for 0400 VS. COWS/CIWA deferred d/t patient sleeping to assess while patient is awake. Safety measures on place by hospital policy: Call light within reach, bed in lowest position and locked, side rails up x2. Will continue to monitor.
--- NOTE | 2017-04-16 07:09 | NUR ---
END OF SHIFT NOTE: Patient is a 51 year old female admitted to [facility] for Alcohol dependency, continue 5 Day Ativan Taper. Patient tolerated well without ASE. Patient remains compliant with treatment plan, medications, and diet regime. Patient reports NKA, Regular Diet. Patient is on Full Code, Fall and Seizures Precautions. Patient denies Seizures History. PMH: Anxiety, Depression, Insomnia, Alcohol abuse History. Last CIWA 4 @0000. CIWA taken when patient was alert during the night. VS @0000: T: 98.3, BP: 132/77, HR: 97, RR:19, RA O2Sat: 97%. Pain level: "0/10". Patient refused to be woken up for 0400 VS. COWS/CIWA deferred d/t patient sleeping to assess while patient is awake. Respirations unlabored and even. Skin is intact, warm and dry to touch. PRN Seroquel 50 mg 2 tabs PO administrated for insomnia @2111, PRN Cepacol 1 nhi PO administrated for sore throat @2330, PRN Tylenol 650 mg 2 tabs PO, and PRN Motrin 400 mg 1 tab PO administrated @2337 for shoulder pain"8/10" were effective. Warm compress on left shoulder was applied @ 2337 was effective. Patient slept 9 hours, intake 400 ml, voided x1. Encouraged fluids as tolerated. Encouraged to attend activities groups. All needs met. Safety measures on place. Call light within reach, bed in lowest position and locked, padded rails up bilaterally. Patient endorsed to day shift nurse.
--- NOTE | 2017-04-16 07:30 | NUR ---
START OF SHIFT NOTE: Received report from sample carrier nurse. Patient is a 51 year old female admitted to [facility] for Alcohol dependency, completed 5 Day Ativan Taper. Pt to be discharged this AM. Pt is alert and oriented X4. Color good, skin warm and dry. Respirations even and unlabored. Safety precautions observed. Call light within reach.
[2017-04-16 08:15] VITALS: BP 115/76
[2017-04-16 08:26] VITALS: BP 115/80
[2017-04-16] MEDS: VENLAFAXINE XR 150 MG CAP.SR.24H PO SCH (08:26)
[2017-04-16] MEDS: CLONIDINE HCL 0.1 MG TABLET PO SCH (08:26)
[2017-04-16] MEDS: FOLIC ACID 1 MG TABLET PO SCH (08:26)
[2017-04-16] MEDS: MULTIVITAMINS,THERAPEUTIC TABLET PO SCH (08:27)
[2017-04-16] MEDS: THIAMINE HCL 100 MG TABLET PO SCH (08:27)
[2017-04-16] MEDS: IBUPROFEN 400 MG TABLET PO PRN (08:31)
[2017-04-16] MEDS: ACETAMINOPHEN 325 MG TABLET PO PRN (08:31)
--- NOTE | 2017-04-16 08:40 | NUR ---
VSS Discharge papers signed along with home medication bag.
== END 2017-04-16 09:43 | DRG 895 ==
LOC: SRC 16:07
PROVIDERS: ADMIT Internal Medicine; ATTEND Internal Medicine
PROC: HZ2ZZZZ Detoxification Services for Substance Abuse Treatment (ICD-10-PCS; principal; 2017-04-10)
PROC: HZ41ZZZ Group Counseling for Substance Abuse Treatment, Behavioral (ICD-10-PCS; 2017-04-12)
PROC: HZ31ZZZ Individual Counseling for Substance Abuse Treatment, Behavioral (ICD-10-PCS; 2017-04-13)
DX: F10.230 Alcohol dependence with withdrawal, uncomplicated (principal); F33.1 Major depressive disorder, recurrent, moderate; I15.9 Secondary hypertension, unspecified; F15.10 Other stimulant abuse, uncomplicated; F41.9 Anxiety disorder, unspecified; F17.210 Nicotine dependence, cigarettes, uncomplicated; Z59.0 Homelessness; J00 Acute nasopharyngitis [common cold]; J30.2 Other seasonal allergic rhinitis; G47.00 Insomnia, unspecified; R73.9 Hyperglycemia, unspecified; Y90.9 Presence of alcohol in blood, level not specified; Z80.7 Family history of other malignant neoplasms of lymphoid, hematopoietic and related tissues; Z80.51 Family history of malignant neoplasm of kidney; Z81.1 Family history of alcohol abuse and dependence
CPT/HCPCS: 36415; 70030-TC; 80307; 83735; 84703; 85025; 86580; 86592; 86705; 86803; 87340; 87806; A4663; G0480; J3411; Q0163